=== PATIENT | male | born 1990 | race Two or more races ===

== ENCOUNTER 2019-01-18 06:51 | Emergency (ER) | payer MEDICAID ==
[~2019-01-18] VITALS: Ht 167.6 cm; Wt 81.6 kg
--- NOTE | 2019-01-18 07:03 | NUR ---
Dr. Pastor at bedside for MSE
--- NOTE | 2019-01-18 07:10 | NUR ---
Patient discharged to home in stable conditon. Written and verbal after care instructions given. Patient verbalizes understanding of instructions. Ambulated from ER with stable gait. All belongings with patient.
[2019-01-18 07:12] VITALS: BP 131/81
== END 2019-01-18 07:13 | disposition home or self-care (01) ==
LOC: ER 06:58
DX: Z71.1 Person with feared health complaint in whom no diagnosis is made (principal); F11.10 Opioid abuse, uncomplicated; F15.10 Other stimulant abuse, uncomplicated
CPT/HCPCS: A4663

== ENCOUNTER 2019-09-05 23:18 | Emergency (ER) | payer MEDICAID ==
[~2019-09-05] VITALS: Ht 167.6 cm; Wt 63.5 kg
[2019-09-05] MEDS ORDERED: LORAZEPAM 1 MG TABLET ONE (23:37)
[2019-09-05] MEDS ORDERED: HALOPERIDOL 5 MG TABLET ONE (23:37)
[2019-09-05] MEDS ORDERED: LORAZEPAM 0.5 MG TABLET PO ONE (23:45)
[2019-09-05] MEDS ORDERED: HALOPERIDOL 0.5 MG TABLET PO ONE (23:45)
[2019-09-06 00:16] VITALS: BP 128/85
--- NOTE | 2019-09-06 00:17 | NUR ---
Patient given written and verbal discharge instructions. Patient verbalizes understanding of instructions. Patient is ambulatory with steady gait. Refuses offer of prison placement. Patient given list of available shelters in surrounding area.
== END 2019-09-06 00:17 | disposition home or self-care (01) ==
LOC: ER 23:21
DX: F15.150 Other stimulant abuse with stimulant-induced psychotic disorder with delusions (principal); Z59.0 Homelessness
CPT/HCPCS: A4663

== ENCOUNTER 2020-06-27 12:20 | Emergency (ER) | payer MEDICAID ==
[~2020-06-27] VITALS: Ht 170.2 cm; Wt 69.9 kg
[2020-06-27] MEDS ORDERED: diphenhydrAMINE 50 MG/1 ML VIAL IM ONE (12:30)
[2020-06-27] MEDS ORDERED: LORAZEPAM 2 MG/1 ML VIAL IM ONE (12:30)
[2020-06-27] MEDS ORDERED: diphenhydrAMINE 50 MG/1 ML VIAL ONE (12:31)
[2020-06-27] MEDS ORDERED: LORAZEPAM 2 MG/1 ML VIAL ONE (12:31)
== END 2020-06-27 12:47 | disposition left against medical advice (07) ==
LOC: ER 12:20
DX: F15.129 Other stimulant abuse with intoxication, unspecified (principal); F15.180 Other stimulant abuse with stimulant-induced anxiety disorder; R00.0 Tachycardia, unspecified; Z59.0 Homelessness
CPT/HCPCS: 96372 ×2; 99284; J1200; J2060; A4663